=== PATIENT | male | born 1960 | race Caucasian/White ===

== ENCOUNTER 2024-11-21 09:23 | Emergency (ER) | payer BC, MEDICAID ==
[~2024-11-21] VITALS: Ht 170.2 cm; Wt 92.9 kg
[~2024-11-21 09:23] MED LIST: ATOR40TA PO; HYDR25TA5 PO; LISI40TA13 PO
--- NOTE | 2024-11-21 09:30 | ELECTROCARDIOGRAPH REPORT ---
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 Toni Tucker Measurements Intervals [place] Rate: 96 P: 43 CO: 183 QRS: -81 QRSD: 103 T: 37 QT: 355 QTc: 449 Interpretive Statements Sinus rhythm Incomplete RBBB and LAFB Probable anterior infarct, age indeterminate Electronically Signed On 11-21-2024 15:46:[address] Toni Tucker Please click the below link to view image of tracing.
[2024-11-21 09:47] LABS: BASOPHILS % (AUTO) 0.3 % (0-1); EOSINOPHILS # (AUTO) 0.1 X10'3 (0-0.9); EOSINOPHILS % (AUTO) 0.4 % (0-6); HEMATOCRIT 41.2 % (42.0-52.0); HEMOGLOBIN 13.6 g/dl (14.0-17.9); LYMPHOCYTES # (AUTO) 0.9 X10'3 (1.1-4.8); LYMPHOCYTES % (AUTO) 6.1 % (21-51); MEAN CORPUSCULAR HEMOGLOBIN 29.9 PG (27.0-31.0); MEAN CORPUSCULAR HGB CONC 33.1 g/dL (33.0-36.5); MEAN CORPUSCULAR VOLUME 90.5 FL (78-98); MONOCYTES % (AUTO) 6.9 % (2-12); NEUTROPHILS # (AUTO) 12.5 X10'3 (1.8-7.7); NEUTROPHILS % (AUTO) 86.3 % (42-75); PLATELET COUNT 310 X10'3 (140-440); RED BLOOD COUNT 4.56 X10'6 (4.70-6.10); WHITE BLOOD COUNT 14.5 X10'3 (4.5-11.0)
--- NOTE | 2024-11-21 09:53 | RADIOLOGY REPORT ---
CHEST RADIOGRAPH Indication: CP Technique: Single frontal view of the chest was obtained COMPARISON: DI CHEST,SINGLE VIEW on DOS: 10/27/23 FINDINGS: Lines and Tubes: Median sternotomy Lungs: Clear Pleura: No effusion. No pneumothorax. Cardiomediastinal contours: Unremarkable Bones: Unremarkable IMPRESSION: No acute disease.
[2024-11-21 10:04] LABS: ALANINE AMINOTRANSFERASE 21 U/L (12-78); ALBUMIN 3.6 G/DL (3.4-5.0); ALKALINE PHOSPHATASE 112 IU/L (46-116); ANION GAP 10 (8-16); ASPARTATE AMINO TRANSFERASE 15 U/L (10-37); BLOOD UREA NITROGEN 21 MG/DL (7-18); BUN/CREATININE RATIO 18.1 (10.0-20.0); CALCIUM 8.6 MG/DL (8.5-10.1); CHLORIDE 104 MMOL/L (99-107); CREATININE 1.16 MG/DL (0.60-1.10); GLUCOSE 113 MG/DL (70-104); SODIUM 141 MMOL/L (135-145); TOTAL CARBON DIOXIDE 27.3 MMOL/L (24-32); TOTAL PROTEIN 7.3 G/DL (6.4-8.2); eCRCL 59 ML/MIN; eGFR 63 ML/MIN
[2024-11-21 10:16] LABS: PRO BRAIN NATRIURETIC PEPTIDE 165 PG/ML (0-125)
--- NOTE | 2024-11-21 11:37 | Physician Documentation ---
History of Present Illness ~ Chief Complaint: Chest Pain Stated Complaint: CHEST PAIN X3 DAYS Time Seen by MD: 10:37 Source: patient, family (Spouse) Mode of Arrival: Ambulatory HPI Patient presents with chest pain and shortness of breath. Worsened when he lays flat. Especially on his right side. His symptoms are all in his right side. Improved with sitting upright. Pain also worsened with deep inspiration. history of CAD status post CABG Reviewed discharge summary October 2023 Status post left BKA, syncope with sinus bradycardia, acute kidney injury and metabolic acidosis. Discontinued metoprolol and resolved lab abnormalities Medication Reconciliation Allergies: Coded Allergies: No Known Allergies (Unverified , 10/27/23) Scheduled Atorvastatin Calcium* (Lipitor*), 1 TAB PO DAILY, (Reported) Hydrochlorothiazide (Hydrochlorothiazide), 1 TAB PO DAILY, (Reported) Lisinopril* (Lisinopril*), 1 TAB PO DAILY, (Reported) Past Medical History Past Medical History: High Cholesterol Past Surgical History: coronary bypass surgery Review of Systems All Other Systems at this time: Reviewed and Negative Constitutional: Denies: fever Respiratory: Reports: pain with breathing; Denies: cough, shortness of breath, wheezing, hemoptysis Cardiovascular: Reports: chest pain Gastrointestinal: Denies: abdominal pain Physical Exam Vital Signs: Temperature: 98.8, Source: Temporal, Heart Rate: 79, Respiratory Rate: 15, BP: 110/68, Pulse Oximetry: 95, Weight: 92.900 Oxygen Flow Rate: 0 Physical Exam Well-appearing no distress resting comfortably in bed Pulmonary clear to auscultation bilaterally no wheezing rhonchi or rales Cardiac no murmur Abdomen soft nontender Lower extremity no edema Progress Progress Note I personally ambulated the patient at 3:45 p.m.. He is chest pain-free with exertion. He does complain of mild pleuritic pain in his right lower lung when taking a deep breath. Results/Orders Reviewed/noted all lab results: Yes Results/Orders Orders - JAYE PARIKH MD Chest,Single View (11/21/24 09:26) Monitor (11/21/24 09:26) Saline Lock (11/21/24 09:26) Oxygen (11/21/24 09:26) Electrocardiogram (11/21/24 09:26) Cta Chest Pe (11/21/24 14:07) Completed Orders - JAYE PARIKH MD Chest,Single View (11/21/24 09:26) Cbc/Diff (11/21/24 09:26) PBNP (11/21/24 09:26) Electrocardiogram (11/21/24 09:26) CMP (11/21/24 09:26) Hs Troponin I W Calculations (11/21/24 09:26) Hs Troponin I W Calculations (11/21/24 11:26) Hs Troponin I W Calculations (11/21/24 12:26) D-Dimer (11/21/24 11:48) Cta Chest Pe (11/21/24 14:07) Ketorolac Trometh 15mg/Ml Vial (Toradol (11/21/24 13:15) Iohexol 350mg/Ml 100ml (Omnipaque 350mg/ (11/21/24 13:23) Medications Received in ER Medications (Trade) Dose Ordered Sig/Rama Route PRN Reason Start Time Stop Time Status Last Admin Dose Admin (Toradol injection) 15 mg ONCE ONCE IV 11/21/24 13:15 11/21/24 13:16 DC 11/21/24 14:52 15 MG Vital Signs 11/21/24 11/21/24 11/21/24 11/21/24 09:31 10:06 10:30 14:52 Temp 98.8 Pulse 85 79 Resp 18 14 15 15 B/P (MAP) 128/76 110/68 (82) Pulse Ox 96 95 O2 Flow Rate 0 Laboratory Tests Test 11/21/24 09:29 11/21/24 11:18 11/21/24 12:33 White Blood Count 14.5 H Red Blood Count 4.56 L Hemoglobin 13.6 L Hematocrit 41.2 L Mean Corpuscular Volume 90.5 Mean Corpuscular Hemoglobin 29.9 Mean Corpuscular Hemoglobin Concent 33.1 Red Cell Distribution Width 15.0 H Platelet Count 310 Mean Platelet Volume 7.0 L Neutrophils (%) (Auto) 86.3 H Lymphocytes (%) (Auto) 6.1 L Monocytes (%) (Auto) 6.9 Eosinophils (%) (Auto) 0.4 Basophils (%) (Auto) 0.3 Neutrophils # (Auto) 12.5 H Lymphocytes # (Auto) 0.9 L Monocytes # (Auto) 1.0 H Eosinophils # (Auto) 0.1 Basophils # (Auto) 0.0 CBC Comment D-Dimer 0.55 H D-Dimer Comment Sodium Level 141 Potassium Level 4.0 Chloride Level 104 Carbon Dioxide Level 27.3 Anion Gap 10 Blood Urea Nitrogen 21 H Creatinine 1.16 H Estimated GFR/1.73 m2 63 BUN/Creatinine Ratio 18.1 Glucose Level 113 H Calcium Level 8.6 Total Bilirubin 2.0 H Aspartate Amino Transf (AST/SGOT) 15 Alanine Aminotransferase (ALT/SGPT) 21 Alkaline Phosphatase 112 Troponin I High Sensitivity 5 6 7 Pro-B-Type Natriuretic Peptide 165 H Total Protein 7.3 Albumin 3.6 Globulin 3.7 Albumin/Globulin Ratio 1.0 L Chemistry Comments Troponin I High Sens Percent Delta 20 16 Troponin I Hi Sens Absolute Change 1 1 EKG/XRAY/CT/US/VASC/MRI EKG : Additional Comment EKG independently interpreted by myself time 9:28 a.m. indication chest pain normal sinus rhythm rate 96, left axis deviation anteroseptal T-wave inversions When compared to 10/27/2023 no acute changes Chest X-Ray : Additional Comments I independently interpreted chest x-ray midline sternotomy wires no pneumothorax no cardiomegaly no pleural effusion CT : Impression I independently interpreted CTA chest shows no pulmonary embolism no pneumothorax no pneumonia, trace left pleural effusion Heart Score: Heart Score Response (Comments) Value History N/A 0 EKG Repolarization Disturb 1 Age >65 2 Risk Factors >3 or Hx ASHD 2 Troponin Normal limit 0 Total 5 Medical Decision Making Additional info obtained from: old records Differential Dx:Considerations: Include: aortic dissection, chest wall pain, pleuritis Departure Disposition: HOME / SELF CARE / HOMELESS Impression: Primary Impression: Pleurisy Discharge Instructions: Nonspecific Chest Pain, Adult Additional Instructions: Your CT scan does not show any concerning findings. Your blood work and EKG are also unremarkable. You may treat this with anti inflammatories.Take alleve 500mg twice daily for 5 days. Please return to the emergency department if you develop any shortness of breath, fever or worsening of your symptoms. However given your previous history of cardiovascular disease you should be re-evaluated by your primary care physician on an urgent manner. Please call him in the next 24 hours to schedule an appointment to be seen in the next few days to weeks if possible. Referrals: NO PRIMARY CARE PROVIDER (PCP) Signature Scribe Signature: na Attestation: JAYE Lee MD November 21, 2024 11:37
[2024-11-21 12:08] LABS: D-DIMER 0.55 MG/L FEU (0-0.50)
[2024-11-21] MEDS ORDERED: iohexol 350MG/ML 100ml bottle IV ONE (13:23)
[2024-11-21] MEDS: ketorolac trometh 15mg/ml vial 15 MG/ML ML IV ONE (14:52)
--- NOTE | 2024-11-21 15:17 | RADIOLOGY REPORT ---
PROCEDURE: CT CTA CHEST PE W/ IV CONTRAST 11/21/2024 02:05 PM INDICATION: chest pain COMPARISON: None TECHNIQUE: Coverage: Thorax IV contrast: Administered Phases: Arterial Multiplanar 3-D Maximum Intensity Projection images (MIP) reconstructions were created by the technezio barajas in the coronal and sagittal planes as part of the CT angiography protocol. Adverse events: None Medication laboratory values were reviewed to verify the patient meets criteria for contrast administ ration. All CT scans at this medical facility are performed using dose modulation techniques as appropriate t o a performed exam including the following: Automated exposure control was utilized; adjustment of th e MA and/or KV according to patient size; and use of iterative reconstruction technique. Radiation dose: CTDIvol 23.50 mGy, DLP 925.88 mGy*cm. FINDINGS: Cardiovascular: No evidence of acute or chronic pulmonary emboli identified. Aorta is normal in calib er. The heart is normal in size. Lungs: No focal consolidation. No pleural effusion. No pneumothorax. The airways are patent. Thyroid: Unremarkable. Esophagus: Unremarkable. Lymphatics: No hilar or mediastinal lymphadenopathy. Bones/soft tissues: No acute abnormality. Upper abdomen: No acute abnormality. Other: None. IMPRESSION: 1. No evidence of acute pulmonary emboli.
[2024-11-21 16:02] VITALS: BP 127/72; PULSE 92; RESP 16; TEMP 98.8; O2SAT 95
[2024-11-21] MEDS ORDERED: AZIT250T83 PO (17:53)
[2024-11-21] MEDS ORDERED: AMOX-580 PO (17:53)
== END 2024-11-21 16:03 | disposition home or self-care (01) ==
LOC: ER 09:23
DX: R09.1 Pleurisy (principal); J18.9 Pneumonia, unspecified organism; E78.00 Pure hypercholesterolemia, unspecified; I25.10 Atherosclerotic heart disease of native coronary artery without angina pectoris; Z95.1 Presence of aortocoronary bypass graft
CPT/HCPCS: 36415; 71045; 71275; 80053; 83880; 84484; 85025; 85379; 93005; 96374; 99285; J1885; Q9967